=== PATIENT | female | born 1990 | race Caucasian/White ===

== ENCOUNTER 2019-05-17 16:34 | Inpatient (IN) | payer MEDICAID, OTHER ==
[~2019-05-17] VITALS: Ht 167.6 cm; Wt 115.7 kg
[~2019-05-17 16:34] MED LIST: PREN-127 PO
[2019-05-17] MEDS ORDERED: SODIUM CHLORIDE 0.9% 1,000 ML IV ONE (17:30)
[2019-05-17] MEDS ORDERED: ONDANSETRON HCL 4MG/2ML INJ IV STA (17:30)
[2019-05-17] MEDS ORDERED: LORAZEPAM 2MG/ML CPJ IV ONE (17:30)
[2019-05-17] MEDS ORDERED: FAMOTIDINE 20MG/2ML VIAL IV STA (17:30)
[2019-05-17 17:40] LABS: HEMATOCRIT. 32.5 % (36.0-48.0); HEMOGLOBIN. 11.2 g/dL (12.0-16.0); MEAN CORPUSCULAR HEMOGLOBIN 24.9 pg (28.0-32.0); MEAN CORPUSCULAR VOLUME 72.4 fL (81.0-99.0); MEAN PLATELET VOLUME 10.4 fl (7.4-10.4); RED BLOOD CELL COUNT 4.49 mill/uL (4.2-5.4); RED CELL DISTRIBUTION WIDTH 19.8 % (11.6-14.6)
[2019-05-17 17:46] LABS: PLATELET 8 x1000/uL (130-400)
[2019-05-17 17:47] LABS: CHLORIDE 90 mEq/L (98-107)
[2019-05-17 17:50] LABS: PROTHROMBIN TIME 10.8 sec (9.6-11.0)
[2019-05-17 17:51] LABS: ETHANOL BLOOD < 10 mg/dL
[2019-05-17] MEDS ORDERED: SODIUM CHLORIDE 0.9% 1000ML BAG (SEPSIS BOLUS) IV ONE (18:45)
[2019-05-17] MEDS ORDERED: POTASSIUM CHLORIDE 20MEQ TABLET SR PO NR (19:00)
[2019-05-17] MEDS ORDERED: VANCOMYCIN 1 G PREMIX 200 ML IV ONE (19:15)
[2019-05-17] MEDS ORDERED: PIPERACILLIN/TAZ 3.375G PREMIX 50 ML IV ONE (19:15)
[2019-05-17 19:22] LABS: PLATELET ESTIMATE MARKEDLY DECREASED
[2019-05-17] MEDS ORDERED: AMIKACIN SULFATE 500 MG in SODIUM CHLORIDE 0.9% 100 ML IV SCH (21:00)
[2019-05-17 21:46] LABS: CLARITY URINE TURBID (CLEAR); COLOR URINE DARK YELLOW (YELLOW); KETONES URINE NEGATIVE (NEGATIVE); LEUKOCYTE ESTERASE URINE 1+ (NEGATIVE); NITRITE URINE POSITIVE (NEGATIVE); OCCULT BLOOD URINE 1+ (NEGATIVE); PROTEIN URINE 1+ (NEGATIVE); SPECIFIC GRAVITY URINE 1.016 (1.005-1.030); UROBILINOGEN URINE 0.2 E.U./dL (0.2-1.0)
[2019-05-17 22:02] LABS: *COCAINE SCREEN URINE NEGATIVE (NEGATIVE); METHADONE URINE SCREEN NEGATIVE (NEGATIVE); PHENCYCLIDINE URINE SCREEN NEGATIVE (NEGATIVE)
[2019-05-17 22:03] LABS: *BARBITURATES SCREEN URINE NEGATIVE (NEGATIVE); *BENZODIAZEPINES SCREEN URINE NEGATIVE (NEGATIVE)
[2019-05-17 22:04] LABS: *AMPHETAMINES SCREEN URINE PRESUMTIVE POSITIVE (NEGATIVE); OPIATES URINE SCREEN PRESUMTIVE POSITIVE (NEGATIVE)
[2019-05-17 22:05] LABS: CANNABINOID URINE SCREEN PRESUMTIVE POSITIVE (NEGATIVE)
[2019-05-17 22:45] LABS: HCG SCREEN NEGATIVE
[2019-05-17 23:21] LABS: CHLORIDE 101 mEq/L (98-107)
[2019-05-18] VITALS (50 sets, daily range): BP systolic 87–179; BP diastolic 41–98
[2019-05-18] MEDS ORDERED: ONDANSETRON HCL 4MG/2ML INJ IV PRN (01:00)
[2019-05-18] MEDS ORDERED: METOCLOPRAMIDE HCL 10MG/2ML VIAL IV SCH (01:15)
[2019-05-18] MEDS: POTASSIUM CHLORIDE INJ 40 MEQ in DEXT 5%/0.9% NACL 1,000 ML IV SCH ×4 (01:59→23:39)
[2019-05-18] MEDS: ACETAMINOPHEN 325MG TABLET PO PRN (02:57)
[2019-05-18] MEDS ORDERED: NOREPINEPHRINE 4 MG in DEXT 5% WATER 246 ML IV PRN (06:00)
[2019-05-18] MEDS ORDERED: *NO ASPIRIN X 24 HOURS XX SCH (06:00)
[2019-05-18] MEDS ORDERED: DEXT 5%/0.45% NACL KCL 40MEQ/L 1,000 ML IV SCH (06:00)
[2019-05-18] MEDS: PIPERACILLIN/TAZOBACTAM 3.375 G in DEXT 5% WATER 100 ML IV SCH ×3 (06:12→17:55)
[2019-05-18] MEDS ORDERED: POTASSIUM CHLORIDE INJ 40 MEQ in DEXT 5%/0.9% NACL 1,000 ML IV SCH (08:00)
[2019-05-18] MEDS: VANCOMYCIN 1500MG in DEXTROSE 5% WATER 250ML IV SCH ×2 (08:12→21:00)
[2019-05-18] MEDS: PANTOPRAZOLE SODIUM 40 MG/VIAL IV SCH (08:12)
[2019-05-18 09:59] LABS: HEMATOCRIT. 26.2 % (36.0-48.0); HEMOGLOBIN. 8.9 g/dL (12.0-16.0); MEAN CORPUSCULAR HEMOGLOBIN 24.9 pg (28.0-32.0); MEAN PLATELET VOLUME 9.9 fl (7.4-10.4); RED BLOOD CELL COUNT 3.59 mill/uL (4.2-5.4); RED CELL DISTRIBUTION WIDTH 20.3 % (11.6-14.6)
[2019-05-18 10:03] LABS: PLATELET 28 x1000/uL (130-400)
[2019-05-18 10:05] LABS: CHLORIDE 105 mEq/L (98-107)
[2019-05-18] MEDS ORDERED: MORPHINE SULFATE 4 MG/ML CPJ (NOT FOR IM USE) IV SCH (10:15)
[2019-05-18] MEDS ORDERED: MORPHINE SULFATE 2 MG/ML CPJ (NOT FOR IM USE) IV SCH (10:40)
[2019-05-18 10:59] LABS: PLATELET ESTIMATE MARKEDLY DECREASED
[2019-05-18] MEDS ORDERED: PNEUMOCOCCAL 23-VAL P-SAC VAC 0.5 ML IM ONE (11:00)
[2019-05-18] MEDS ORDERED: INFLUENZA VIRUS VACCINE(AFLURIA) 0.5ML SYR IM ONE (11:00)
[2019-05-18] MEDS: AMIKACIN SULFATE 600 MG in SODIUM CHLORIDE 0.9% 100 ML IV SCH ×2 (11:22→23:52)
[2019-05-18] MEDS ORDERED: AMIKACIN SULFATE 500 MG in SODIUM CHLORIDE 0.9% 100 ML IV SCH (12:00)
[2019-05-18] MEDS ORDERED: LORAZEPAM 2MG/ML CPJ IV NR (15:00)
[2019-05-18 19:23] LABS: TOTAL IRON BINDING CAPACITY 272 ug/dL (250-450)
[2019-05-18] MEDS: MORPHINE SULFATE 2 MG/ML CPJ (NOT FOR IM USE) IV PRN (19:25)
[2019-05-18 19:44] LABS: FERRITIN 374 ng/mL (10-291); HEPATITIS B SURFACE AB 69.2 mIU/mL
[2019-05-18 19:55] LABS: HEPATITIS B SURFACE ANTIGEN NEGATIVE
[2019-05-18 20:02] LABS: VITAMIN B12 SERUM > 2000.0 pg/mL (211-911)
[2019-05-18 20:24] LABS: HEPATITIS A AB IGM NEGATIVE (NEGATIVE)
[2019-05-19] VITALS (34 sets, daily range): BP systolic 84–137; BP diastolic 41–78
[2019-05-19 06:00] LABS: HEMATOCRIT. 22.6 % (36.0-48.0); HEMOGLOBIN. 7.8 g/dL (12.0-16.0); MEAN CORPUSCULAR HEMOGLOBIN 25.2 pg (28.0-32.0); RED BLOOD CELL COUNT 3.09 mill/uL (4.2-5.4); RED CELL DISTRIBUTION WIDTH 19.8 % (11.6-14.6)
[2019-05-19] MEDS: POTASSIUM CHLORIDE INJ 40 MEQ in DEXT 5%/0.9% NACL 1,000 ML IV SCH ×3 (06:27→20:35)
[2019-05-19 07:01] LABS: CHLORIDE 104 mEq/L (98-107)
[2019-05-19] MEDS: MORPHINE SULFATE 2 MG/ML CPJ (NOT FOR IM USE) IV PRN ×2 (07:40→14:30)
[2019-05-19] MEDS: PIPERACILLIN/TAZOBACTAM 3.375 G in DEXT 5% WATER 100 ML IV SCH ×5 (07:49→18:05)
[2019-05-19] MEDS: VANCOMYCIN 1500MG in DEXTROSE 5% WATER 250ML IV SCH ×2 (07:49→20:20)
[2019-05-19 08:16] LABS: PLATELET ESTIMATE DECREASED
[2019-05-19 08:19] LABS: MEAN PLATELET VOLUME 9.7 fl (7.4-10.4); PLATELET 70 x1000/uL (130-400)
[2019-05-19] MEDS ORDERED: POTASSIUM CHLORIDE 20MEQ/PACKET PO SCH (08:30)
[2019-05-19] MEDS: PANTOPRAZOLE SODIUM 40 MG/VIAL IV SCH (09:03)
[2019-05-19] MEDS: ACETAMINOPHEN 325MG TABLET PO PRN (09:38)
[2019-05-19] MEDS ORDERED: DIPHENHYDRAMINE 50MG/ML VIAL ONE ×2 (11:35→11:41)
[2019-05-19] MEDS ORDERED: MIDAZOLAM HCL 5 MG/5 ML VIAL ONE (11:35)
[2019-05-19] MEDS ORDERED: FENTANYL CITRATE/PF 50MCG/ML 2ML VIAL ONE (11:36)
[2019-05-19] MEDS ORDERED: DIAZEPAM 5 MG/ML 2ML CPJ ONE ×2 (11:36→11:41)
[2019-05-19] MEDS: AMIKACIN SULFATE 600 MG in SODIUM CHLORIDE 0.9% 100 ML IV SCH (12:03)
[2019-05-19] MEDS ORDERED: FENTANYL CITRATE/PF 50MCG/ML 2ML VIAL IV PRN (12:20)
[2019-05-19] MEDS ORDERED: MIDAZOLAM HCL 5 MG/5 ML VIAL IV PRN (12:21)
[2019-05-19] MEDS ORDERED: DIAZEPAM 5 MG/ML 2ML CPJ IV PRN (12:23)
[2019-05-19] MEDS: IRON SUCROSE COMPLEX 100 MG/5 ML ML IV SCH (14:25)
[2019-05-19] MEDS ORDERED: IOHEXOL-350 100 ML BOTTLE ONE (17:31)
[2019-05-19 17:57] LABS: HEMATOCRIT. 27.7 % (36.0-48.0); HEMOGLOBIN. 9.5 g/dL (12.0-16.0); MEAN CORPUSCULAR HEMOGLOBIN 25.2 pg (28.0-32.0); MEAN CORPUSCULAR VOLUME 73.2 fL (81.0-99.0); MEAN PLATELET VOLUME 9.7 fl (7.4-10.4); PLATELET 117 x1000/uL (130-400); RED BLOOD CELL COUNT 3.78 mill/uL (4.2-5.4); RED CELL DISTRIBUTION WIDTH 19.9 % (11.6-14.6)
[2019-05-19] MEDS: MORPHINE SULFATE 4 MG/ML CPJ (NOT FOR IM USE) IV PRN (19:00)
[2019-05-19] MEDS: AMIKACIN SULFATE 400 MG in SODIUM CHLORIDE 0.9% 100 ML IV SCH (23:02)
[2019-05-20] VITALS (29 sets, daily range): BP systolic 95–149; BP diastolic 30–93
[2019-05-20] MEDS: PIPERACILLIN/TAZOBACTAM 3.375 G in DEXT 5% WATER 100 ML IV SCH ×4 (00:03→18:46)
[2019-05-20] MEDS: MORPHINE SULFATE 4 MG/ML CPJ (NOT FOR IM USE) IV PRN ×4 (00:51→19:33)
[2019-05-20] MEDS: ACETAMINOPHEN 325MG TABLET PO PRN ×2 (02:10→12:18)
[2019-05-20] MEDS: POTASSIUM CHLORIDE INJ 40 MEQ in DEXT 5%/0.9% NACL 1,000 ML IV SCH ×2 (03:05→09:32)
[2019-05-20 06:22] LABS: HEMOGLOBIN 7.3 g/dL (12.0-16.0); PLATELET 123 x1000/uL (130-400); RED CELL DISTRIBUTION WIDTH 20.1 % (11.6-14.6)
[2019-05-20 06:43] LABS: HEMATOCRIT 20.7 % (36.0-48.0)
[2019-05-20 06:50] LABS: CHLORIDE 112 mEq/L (98-107)
[2019-05-20] MEDS: IRON SUCROSE COMPLEX 100 MG/5 ML ML IV SCH (08:37)
[2019-05-20] MEDS: PANTOPRAZOLE SODIUM 40 MG/VIAL IV SCH (08:37)
[2019-05-20] MEDS: VANCOMYCIN 1500MG in DEXTROSE 5% WATER 250ML IV SCH ×2 (08:37→16:49)
[2019-05-20] MEDS ORDERED: DEXTROSE 50% WATER 50ML SYRINGE IV NR (09:00)
[2019-05-20] MEDS ORDERED: INSULIN REGULAR (HUMULIN R) 300UNITS/3ML IV NR (09:00)
[2019-05-20 09:06] LABS: FOLATE HEMATOCRIT 23.8 % (34.0-46.6)
[2019-05-20] MEDS ORDERED: CALCIUM GLUCONATE 1,000 MG in DEXT 5% WATER 90 ML IV NR (09:30)
[2019-05-20] MEDS: AMIKACIN SULFATE 400 MG in SODIUM CHLORIDE 0.9% 100 ML IV SCH ×2 (10:32→23:00)
[2019-05-20 11:22] LABS: CHLORIDE 96 mEq/L (98-107)
[2019-05-20 13:06] LABS: FOLATE RBC 1483 ng/mL (>498)
[2019-05-20] MEDS ORDERED: DEXT 5%/0.9% NACL 1,000 ML IV SCH (15:00)
[2019-05-20] MEDS ORDERED: VANCOMYCIN 1500MG in DEXTROSE 5% WATER 250ML IV SCH (16:00)
[2019-05-21] MEDS: PIPERACILLIN/TAZOBACTAM 3.375 G in DEXT 5% WATER 100 ML IV SCH ×2
[2019-05-21] MEDS: VANCOMYCIN 1500MG in DEXTROSE 5% WATER 250ML IV SCH ×2
[2019-05-22 15:08] LABS: ANA IFA Negative (.)
[2019-05-23 15:06] LABS: ACTIN (SMOOTH MUSCLE) ANTIBODY 12 Units (0-19)
[2019-06-12 06:43] LABS: *ALPHA 2 MACROGLOBULINS QN 103 mg/dL (110-276); *GGT1 78 IU/L (.); *TRIGLYCERIDES 350 mg/dL (0-149)
== END 2019-05-20 20:15 | disposition short-term general hospital (02) | DRG 720 ==
LOC: ER 16:41 → EDBEDREQ 20:32 → CVICU 21:37 → EDBEDREQ 21:38 → EDBEDREQTM 21:38 → ENRESERV 05-18 03:43
PROVIDERS: ADMIT Internal Medicine; ATTEND Internal Medicine
PROC: 02HV33Z Insertion of Infusion Device into Superior Vena Cava, Percutaneous Approach (ICD-10-PCS; 2019-05-18)
PROC: B548ZZA Ultrasonography of Superior Vena Cava, Guidance (ICD-10-PCS; 2019-05-18)
PROC: 30233R1 Transfusion of Nonautologous Platelets into Peripheral Vein, Percutaneous Approach (ICD-10-PCS; 2019-05-18)
PROC: 30233N1 Transfusion of Nonautologous Red Blood Cells into Peripheral Vein, Percutaneous Approach (ICD-10-PCS; 2019-05-18)
PROC: 0DB68ZX Excision of Stomach, Via Natural or Artificial Opening Endoscopic, Diagnostic (ICD-10-PCS; principal; 2019-05-19)
DX: A41.9 Sepsis, unspecified organism (principal); R65.21 Severe sepsis with septic shock; K75.0 Abscess of liver; E43 Unspecified severe protein-calorie malnutrition; D69.6 Thrombocytopenia, unspecified; E87.1 Hypo-osmolality and hyponatremia; E87.8 Other disorders of electrolyte and fluid balance, not elsewhere classified; E87.5 Hyperkalemia; N39.0 Urinary tract infection, site not specified; E87.6 Hypokalemia; E66.9 Obesity, unspecified; F12.90 Cannabis use, unspecified, uncomplicated; F15.10 Other stimulant abuse, uncomplicated; K80.30 Calculus of bile duct with cholangitis, unspecified, without obstruction; F17.210 Nicotine dependence, cigarettes, uncomplicated; K29.70 Gastritis, unspecified, without bleeding; R29.6 Repeated falls; R16.0 Hepatomegaly, not elsewhere classified; B96.89 Other specified bacterial agents as the cause of diseases classified elsewhere; F19.10 Other psychoactive substance abuse, uncomplicated; D64.9 Anemia, unspecified; Z90.49 Acquired absence of other specified parts of digestive tract; Z91.19 Patient's noncompliance with other medical treatment and regimen; Z79.899 Other long term (current) drug therapy; Z68.41 Body mass index [BMI] 40.0-44.9, adult
CPT/HCPCS: 36415; 71045; 74176; 74178; 74181; 76705; 76937; 80048; 80053; 80061; 80076; 80150; 80202; 80305; 80307; 80320; 81003; 82105; 82140; 82248; 82378; 82390; 82607; 82728; 82747; 82962; 83540; 83550; 83605; 83615; 83735; 83880; 84100; 84132; 84484; 84703; 85014; 85025; 85027; 85044; 86256; 86301; 86706; 86709; 86803; 86850; 86900; 86920; 87077; 87186; 87340; 88305; 88313; 93005; 93306; 93970; 93976; 97162; 99291; C1725; C9113; J0278; J0610; J1200; J1815; J2060; J2250; J2270; J2405; J2543; J2765; J3010; J3370; J3480; J3490; J7030; J7042; J7050; J7060; P9016; P9034; Q9967; G0480